=== PATIENT | female | born 1975 | race Caucasian/White ===

== ENCOUNTER 2019-12-30 13:55 | Outpatient (CLI) | payer BC, SELFPAY ==
--- NOTE | ~2019-12-30 | US_ITS ---
EXAMINATION: US venous doppler LE RT DATE: 12/30/2019 14:34 INDICATION: Right lower limb pain. TECHNIQUE: Grayscale ultrasound images without and with compression and Doppler ultrasound images of the right lower extremity veins were obtained. COMPARISON: None. FINDINGS: The visualized portions of right common femoral vein, profunda (deep) femoral vein, femoral vein, pop liteal vein, peroneal veins, posterior tibial veins, and greater saphenous vein outflow are patent. IMPRESSION: 1. No deep venous thrombosis. Reviewed, dictated and finalized at location B.
== END 2019-12-30 13:56 | disposition home or self-care (01) ==
LOC: ANHIMG 14:01
PROVIDERS: PCP Physician Assistant; Visit Provider Physician Assistant
DX: M79.671 Pain in right foot (principal)
CPT/HCPCS: 93971

== ENCOUNTER 2019-12-31 10:02 | Outpatient (CLI) | payer BC, SELFPAY ==
--- NOTE | ~2019-12-31 | XR_ITS ---
XR foot RT min 3V DATE: 12/31/2019 10:17 INDICATION: Pain, edema, erythema of distal foot. No recent injury. TECHNIQUE: 4 views COMPARISON: None FINDINGS: No fracture or dislocation, periosteal reaction or bone destruction. IMPRESSION: Negative Reviewed, dictated and finalized at location A. IMPRESSION: Negative
== END 2019-12-31 10:03 | disposition home or self-care (01) ==
LOC: ANHIMG 10:04
PROVIDERS: PCP Physician Assistant; Visit Provider Physician Assistant
DX: M79.671 Pain in right foot (principal)
CPT/HCPCS: 73630

== ENCOUNTER 2024-02-03 15:07 | Outpatient (CLI) | payer BC, SELFPAY ==
--- NOTE | ~2024-02-03 | MM_ITS ---
EXAMINATION: MM screening george BI w [place] HISTORY: Screening mammogram TECHNIQUE: Craniocaudal and mediolateral oblique 3-D tomosynthesis images were obtained and synthetic 2-D images were generated. CAD analysis was submitted and interpreted. COMPARISON: No prior mammogram is available for comparison at this institution. BREAST PARENCHYMAL COMPOSITION:Not Dense. There are scattered areas of fibroglandular density. FINDINGS: There is a small low-density mass at the upper, outer left breast. No suspicious mass, calc ification, or architectural distortion are identified in the right breast. IMPRESSION: Small low-density mass of the upper, outer left breast. Spot compression views and possibly ultrasou nd are recommended for further evaluation. BI-RADS Category 0: Incomplete: Needs additional imaging evaluation. Reviewed, dictated and finalized at [facility]. IMPRESSION: Small low-density mass of the upper, outer left breast. Spot compression views and possibly ultrasound are recommended for further evaluation. BI-RADS Category 0: Incomplete: Needs additional imaging evaluation.
== END 2024-02-03 15:08 | disposition home or self-care (01) ==
LOC: MICIMG 15:08
PROVIDERS: PCP Physician Assistant; Visit Provider Physician Assistant
DX: Z12.31 Encounter for screening mammogram for malignant neoplasm of breast (principal); R92.8 Other abnormal and inconclusive findings on diagnostic imaging of breast
CPT/HCPCS: 77063; 77067

== ENCOUNTER 2024-02-23 08:26 | Outpatient (CLI) | payer BC, SELFPAY ==
--- NOTE | ~2024-02-23 | MMUS_ITS ---
EXAMINATION: MM diagnostic george LT w [place], US breast LT limited HISTORY: Follow-up left breast asymmetries TECHNIQUE: Additional 3-D tomosynthesis images of the left breast were performed and synthetic 2-D im ages were generated. CAD analysis was submitted and interpreted. High resolution Limited left breast ultrasound was performed. COMPARISON: 02/03/2024 BREAST PARENCHYMAL COMPOSITION: Not dense: There are scattered areas of fibroglandular density. FINDINGS: MAMMOGRAPHIC FINDINGS: There is persistent focal asymmetry laterally in the left breast on spot CC view, middle third. There are no suspicious calcifications or architectural distortion. ULTRASOUND: Limited left breast ultrasound: At 1:00, 8 cm from the nipple there is a 4 mm cyst. At 1:00, 5 cm fro m the nipple there is a 5 mm cyst, likely corresponding to the mammographic finding. No suspicious ma sses to suggest malignancy. IMPRESSION: 1. No evidence for malignancy in the left breast. 2. Routine yearly screening mammogram and regular clinical breast examination are recommended. BI-RADS Category 2: Benign finding(s). Reviewed, dictated and finalized at location B. IMPRESSION: 1. No evidence for malignancy in the left breast. 2. Routine yearly screening mammogram and regular clinical breast examination a re recommended. BI-RADS Category 2: Benign finding(s).
== END 2024-02-23 08:27 | disposition home or self-care (01) ==
PROVIDERS: PCP Physician Assistant; Visit Provider Physician Assistant
DX: R92.8 Other abnormal and inconclusive findings on diagnostic imaging of breast (principal)
CPT/HCPCS: 76642; 77061; 77065; G0279